=== PATIENT | male | born 1980 ===

== ENCOUNTER 2017-10-24 04:35 | Emergency (ER) | payer OTHER ==
[2017-10-24 05:20] VITALS: RESP 16
[2017-10-24] MEDS ORDERED: Famotidine 20mg/50ml Premix IVPB STA (05:28)
[2017-10-24] MEDS ORDERED: DiphenhydrAMINE 50 mg/ml Inj IV STA (05:28)
--- NOTE | 2017-10-24 05:31 | ED PDOC ---
HPI: Skin/Bite Injury Time Seen by Provider: 10/24/17 05:15 Chief Complaint (Nursing): Abnormal Skin Integrity Chief Complaint (Provider): rash History Per: Patient History/Exam Limitations: no limitations Onset/Duration Of Symptoms: Days (1) Current Symptoms Are (Timing): Still Present Quality Of Symptoms: Itching Additional Complaint(s): 37 y/o male presents for evaluation of diffuse pruritic rash x 1 day. Denies fever, facial swelling, difficulty speaking/swallowing, chest pain, shortness of breath, palpitations, known allergen Past Medical History Reviewed: Historical Data, Nursing Documentation, Vital Signs Vital Signs: Last Vital Signs Temp 98 F 10/24/17 07:09 Pulse 80 10/24/17 07:09 Resp 16 10/24/17 07:09 BP 110/71 10/24/17 07:09 Pulse Ox 98 10/24/17 07:09 - Medical History PMH: No Chronic Diseases - Surgical History Surgical History: No Surg Hx - Family History Family History: States: No Known Family Hx - Living Arrangements Living Arrangements: With Family - Home Medications Home Medications: Ambulatory Orders Medication Instructions Recorded DiphenhydrAMINE [Benadryl] 50 mg PO Q6 PRN #20 cap 10/24/17 Famotidine [Pepcid] 20 mg PO BID #8 tab 10/24/17 predniSONE [Prednisone] 60 mg PO DAILY #12 tab 10/24/17 - Allergies Allergies/Adverse Reactions: Allergies Allergy/AdvReac Type Severity Reaction Status Date / Time No Known Allergies Allergy Verified 10/24/17 05:24 Review of Systems ROS Statement: Except As Marked, All Systems Reviewed And Found Negative Skin: Positive for: Rash Physical Exam - Reviewed Nursing Documentation Reviewed: Yes Vital Signs Reviewed: Yes - Physical Exam Appears: Positive for: Well, Non-toxic, No Acute Distress Head Exam: Positive for: ATRAUMATIC, NORMAL INSPECTION, NORMOCEPHALIC Skin: Positive for: Normal Color, Rash (diffuse hives; no lesions, tenderness, temp change noted) Eye Exam: Positive for: Normal appearance ENT: Positive for: Normal ENT Inspection Cardiovascular/Chest: Positive for: Regular Rate, Rhythm Respiratory: Positive for: Normal Breath Sounds Gastrointestinal/Abdominal: Positive for: Normal Exam Back: Positive for: Normal Inspection Extremity: Positive for: Normal ROM Neurologic/Psych: Positive for: Alert, Oriented - ECG O2 Sat by Pulse Oximetry: 99 - Progress ED Course And Treament: IV solumedrol, IV benadryl, IV pepcid On re-eval, rash improved. Patient states he is feeling better. Patient educated on findings, discharged with rx prednisone, pepcid, benadryl Advised follow up PMD 2-3 days. Return precautions given Disposition - Clinical Impression Clinical Impression: Rash - Patient ED Disposition Is Patient to be Admitted: No Counseled Patient/Family Regarding: Diagnosis, Need For Followup, Rx Given - Disposition Referrals: [facility] [Outside] Disposition: Routine/Home Disposition Time: 06:00 Condition: IMPROVED Prescriptions: DiphenhydrAMINE [Benadryl] 50 mg PO Q6 PRN #20 cap PRN Reason: Allergy Symptoms Famotidine [Pepcid] 20 mg PO BID #8 tab predniSONE [Prednisone] 60 mg PO DAILY #12 tab Instructions: Skin Rash Forms: [facility] ([place]) Print Language: UKRAINIAN
[2017-10-24] MEDS ORDERED: DiphenhydrAMINE 50 mg/ml Inj ONE (05:35)
[2017-10-24] MEDS ORDERED: Famotidine 20mg/50ml 20 MG/50 ML BAG IVPB ONE (05:35)
[2017-10-24 07:11] VITALS: BP 110/71; PULSE 80; TEMP 98
[2017-10-30 04:34] VITALS: O2SAT 99
== END 2017-10-24 07:09 | disposition home or self-care (01) ==
LOC: H.ER 04:35
DX: R21 Rash and other nonspecific skin eruption (principal)
CPT/HCPCS: 96365; 96375; 99283; J1200; J2930